=== PATIENT | male | born 1955 | race Caucasian/White ===

== ENCOUNTER 2023-08-28 16:27 | Emergency (ER) | payer OTHER, BC ==
[2023-08-28 16:43] VITALS: BP 161/90; PULSE 96; RESP 18; TEMP 98.2; BMI 27.2
[2023-08-28] MEDS ORDERED: DIPHTH,PERTUSS(ACELL),TET 0.5 ML DISP.SYRIN IM ONE ×2 (17:09→17:35)
[2023-08-28] MEDS ORDERED: ACETAMINOPHEN 500 MG TABLET (FP) PO ONE (18:15)
[2023-08-28] MEDS ORDERED: ACETAMINOPHEN 500 MG TABLET (FP) ONE (18:26)
== END 2023-08-28 18:30 | disposition home or self-care (01) ==
LOC: JERFT 16:27
PROC: 0HQFXZZ Repair Right Hand Skin, External Approach (ICD-10-PCS; principal; 2023-08-28)
PROC: 3E0234Z Introduction of Serum, Toxoid and Vaccine into Muscle, Percutaneous Approach (ICD-10-PCS; 2023-08-28)
DX: S61.411A Laceration without foreign body of right hand, initial encounter (principal); W20.8XXA Other cause of strike by thrown, projected or falling object, initial encounter; W26.8XXA Contact with other sharp object(s), not elsewhere classified, initial encounter
CPT/HCPCS: 12002-25; 90471; 90715; 99283-25